=== PATIENT | female | born 1990 | race African-American/Black ===

== ENCOUNTER → 2023-02-11 08:56 | Outpatient (CLI) | payer OTHER, SELFPAY ==
--- NOTE | 2023-02-11 | DI.RAD.S_ITS ---
PROCEDURE: FL SHOULDER INJECTION MR/CT LT INDICATIONS: LEFT SHOULDER PAIN COMPARISON: None TECHNIQUE: The indications, alternatives, benefits, risks, and complications of the procedure were explained to the patient. Written informed consent was obtained and placed in the chart. The shoulder was examined fluoroscopically and a site for needle placement chosen for entry into the glenohumeral joint from an anterior approach. The skin was prepped and draped in a sterile fashion, and 1% lidocaine infiltrated from skin down to joint capsule. A spinal needle was inserted into the glenohumeral joint, and a small amount of iodinated contrast media injected to confirm intra-articular placement of the needle tip. This was followed by approximately 12 mL dilute solution of a gadolinium containing MR contrast agent. The needle was removed and a dressing was applied. The patient was given postprocedural instructions and sent to the MR suite for MR imaging. FINDINGS: A single fluoroscopic spot image demonstrates intra-articular location of injected iodinated contrast. IMPRESSION: Successful fluoroscopically guided administration of dilute Gadolinium solution into the shoulder joint for MR arthrogram. Dictated by: Norman Marmolejo M.D. on 02/11/2023 at 10:50 Approved by: Norman Marmolejo M.D. on 02/11/2023 at 10:51
--- NOTE | 2023-02-11 | DI.MRI.S_ITS ---
PROCEDURE: MR SHOULDER LT W CON INDICATIONS: LEFT SHOULDER PAIN TECHNIQUE: After the administration of 12 mL of dilute intra-articular Gadolinium contrast, oblique coronal T1 and T2 spin echo with fat saturation, oblique sagittal T1 spin echo with and without fat saturation, oblique sagittal T2 fast spin echo with fat saturation, axial T1 spin echo with fat saturation through the shoulder. COMPARISON: [facility], CR, XR SHOULDER 2+ VIEWS BILATERAL, 01/23/2021, 11:49. [facility], RF, FL SHOULDER INJECTION MR/CT LT, 02/11/2023, 9:47. FINDINGS: Image quality: Excellent. Rotator cuff: The supraspinatus, infraspinatus, and subscapularis tendons appear intact throughout. No rotator cuff muscle atrophy on sagittal images. Bones and bursae: No acute trabecular bone injury or fracture. Glenohumeral articular cartilages are intact. No significant acromioclavicular degenerative changes. Small amount of glenohumeral contrast material is seen with subacromial/subdeltoid bursa. No intra-articular loose body. Capsule and soft tissues: There is nondisplaced tearing of the anteroinferior labrum. The proximal biceps long head tendon demonstrates [id number] signal which may be related to injection of contrast material during the arthrogram procedure versus tendinosis. Glenohumeral ligaments are intact. IMPRESSION: 1. Nondisplaced tearing of the anteroinferior labrum. 2. Intrasubstance signal in the biceps long head tendon may be secondary to intertendinous injection during the arthrogram procedure versus tendinopathy. 3. No significant rotator cuff tendon tear. Small amount of contrast material in the subacromial/subdeltoid bursa is suspected to be secondary to direct injection during the arthrogram procedure rather than communication with the glenohumeral joint. Approved by: Norman Villafana M.D. on 02/11/2023 at 14:00
== END ==
DX: M25.512 Pain in left shoulder (principal); S43.402A Unspecified sprain of left shoulder joint, initial encounter
CPT/HCPCS: 23350; 73222